=== PATIENT | female | born 1995 | race Caucasian/White ===

== ENCOUNTER 2018-02-17 18:43 | Observation (INO) ==
[2018-02-17 19:23] LABS: Apearance,Urine CLEAR (Clear); Bilirubin,Urine Negative (Negative); Blood, Urine Negative (Negative); Glucose,Urine (UA) Negative (Negative); Ketones,Urine Negative (Negative); Mucus,Urine Occasional /LPF (Occasional); Nitrite,Urine Negative (Negative); Protein,Urine Negative; RBC,Urine <1 /HPF (0-4); Squamous Epithelial Cell,Urine Occasional /HPF (0-10); Urine Color Colorless (Yellow); Urine Specific Gravity 1.001 (1.001-1.035); Urine Urobilinogen < 2.0 EU/DL (0.2-1.0); WBC,Urine <1 /HPF (0-6)
[2018-02-17] MEDS ORDERED: ALUM/MAG/SIMETH/LIDO VISC 1:1 30 ML BOTTLE PO STA (19:35)
[2018-02-17] MEDS ORDERED: ONDANSETRON 4 MG TABLET PO ONE (19:35)
[2018-02-17 19:37] LABS: Basophils # 0.1 10*3/uL (0.0-0.2); Basophils % 0.7 % (0.0-0.8); Eosinophils # 0.5 10*3/uL (0.0-0.87); Hematocrit 34.8 VOL% (35.7-47.0); Hemoglobin 12.2 GM/DL (12.0-16.0); Immature Granulocytes % 0.3 %; Immature Granulocytes Absolute 0.03 #; Lymphocytes # 3.3 10*3/uL (1.4-4.0); Lymphocytes % 36.5 % (21.3-54.2); Mean Corpuscular HGB Conc 35.1 GM/DL (32-36); Mean Corpuscular Hemoglobin 33 PG (27-34); Mean Corpuscular Volume 93.8 FL (87-102); Monocytes # 0.9 10*3/uL (0.11-0.8); Monocytes % 9.7 % (1.7-12.7); Neutrophils # 4.2 10*3/uL (1.4-7.4); Neutrophils % 46.8 % (38.7-73.9); Platelet Count 236 T/CUMM (130-400); Red Blood Count 3.71 MC/CUMM (3.8-5.5); Red Cell Distribution Width 12.1 % (9.3-17.3); White Blood Count 8.9 T/CUMM (4-12)
[2018-02-17] MEDS ORDERED: ONDANSETRON ODT 4 MG TABLET PO ONE (19:37)
[2018-02-17] MEDS ORDERED: ALUM/MAG/SIMETH/LIDO VISC 1:1 30 ML BOTTLE PO ONE (19:37)
[2018-02-17 20:17] LABS: Alanine Aminotransferase 18 U/L (13-56); Albumin 4.1 G/DL (3.4-5.0); Alkaline Phosphatase 41 U/L (45-117); Aspartate Amino Transferase 11 U/L (0-37); Bilirubin,Total < 0.39 MG/DL (0.2-1.0); Blood Urea Nitrogen 7 MG/DL (7-18); Calcium 8.9 MG/DL (8.5-10.1); Glucose 84 MG/DL (74-106); Sodium 139 MMOL/L (136-145); Total Protein 7.4 G/DL (6.4-8.3)
[2018-02-17 20:18] LABS: Osmolality,Calculated 273.5 MOS/KG (273-304); Potassium 3.6 MMOL/L (3.5-5.1)
[2018-02-17] MEDS ORDERED: ONDANSETRON 4 MG/2 ML VIAL IV STA (22:11)
[2018-02-17] MEDS ORDERED: MORPHINE 4 MG/1 ML VIAL IV STA (22:12)
[2018-02-17] MEDS ORDERED: KETOROLAC 30 MG/1 ML VIAL IV STA (22:17)
[2018-02-17] MEDS ORDERED: LIDOCAINE 1% 20 ML VIAL ONE (22:21)
[2018-02-17] MEDS: LACTATED RINGERS 1,000 ML IV SCH (22:30)
[2018-02-17] MEDS ORDERED: TISSUE ADHESIVE 1 EACH APPLICATOR TOP ONE (23:32)
[2018-02-17] MEDS ORDERED: GLYCOPYRROLATE 0.4 MG/2 ML VIAL ONE (23:59)
[2018-02-17] MEDS ORDERED: ONDANSETRON 4 MG/2 ML VIAL ONE ×2 (23:59)
[2018-02-17] MEDS ORDERED: PROPOFOL 200 MG/20 ML VIAL IV ONE (23:59)
[2018-02-17] MEDS ORDERED: HYDROmorphone 2 MG/1 ML VIAL ONE (23:59)
[2018-02-17] MEDS ORDERED: fentaNYL 100 MCG/2 ML VIAL ONE (23:59)
[2018-02-17] MEDS ORDERED: DESFLURANE 1 UNIT/15 MINUTE INH ONE (23:59)
[2018-02-18] MEDS ORDERED: NEOSTIGMINE 10 MG/10 ML VIAL ONE
[2018-02-18] MEDS ORDERED: ROCURONIUM 100 MG/10 ML VIAL IV ONE
[2018-02-18] MEDS ORDERED: SUCCINYLCHOLINE 200 MG/10 ML VIAL ONE
[2018-02-18] MEDS ORDERED: MEPERIDINE 25 MG/1 ML VIAL ONE (00:08)
[2018-02-18] MEDS ORDERED: ONDANSETRON 4 MG/2 ML VIAL IV PRN ×2 (00:10→00:54)
[2018-02-18] MEDS ORDERED: MEPERIDINE 25 MG/1 ML VIAL IV PRN (00:10)
[2018-02-18] MEDS: HYDROmorphone 2 MG/1 ML VIAL IV PRN ×3 (00:10→00:27)
[2018-02-18] MEDS ORDERED: BISACODYL 10 MG SUPP RECTAL PRN (00:54)
[2018-02-18] MEDS ORDERED: DOCUSATE SODIUM 100 MG CAPSULE PO PRN (00:54)
[2018-02-18] MEDS ORDERED: BENZOCAINE/MENTHOL LOZENGE 18/BOX PO PRN (00:54)
[2018-02-18] MEDS ORDERED: IBUPROFEN 800 MG TABLET PO PRN (00:54)
[2018-02-18] MEDS ORDERED: MAGNESIUM HYDROXIDE SUSP 30 ML UDCUP PO PRN (00:54)
[2018-02-18] MEDS: LACTATED RINGERS 1,000 ML IV SCH (04:29)
[2018-02-18 08:09] VITALS: BP 102/59
== END 2018-02-18 09:20 | disposition home or self-care (01) ==
LOC: N.ED 18:43 → N.OB 18:43
PROVIDERS: ADMIT Obstetrics & Gynecology; ATTEND Obstetrics & Gynecology

== ENCOUNTER 2018-02-26 01:17 | Observation (INO) ==
[2018-02-26 05:53] LABS: Basophils # 0.1 10*3/uL (0.0-0.2); Basophils % 0.7 % (0.0-0.8); Eosinophils # 0.4 10*3/uL (0.0-0.87); Eosinophils % 5.3 % (0.00-10.9); Hematocrit 40.4 VOL% (35.7-47.0); Hemoglobin 13.6 GM/DL (12.0-16.0); Immature Granulocytes % 0.3 %; Immature Granulocytes Absolute 0.02 #; Lymphocytes % 41.4 % (21.3-54.2); Mean Corpuscular HGB Conc 33.7 GM/DL (32-36); Mean Corpuscular Hemoglobin 32 PG (27-34); Mean Corpuscular Volume 95.3 FL (87-102); Mean Platelet Volume 9.9 FL (9.6-12.0); Monocytes # 0.6 10*3/uL (0.11-0.8); Monocytes % 8.9 % (1.7-12.7); Neutrophils # 3.1 10*3/uL (1.4-7.4); Neutrophils % 43.4 % (38.7-73.9); Platelet Count 260 T/CUMM (130-400); Red Blood Count 4.24 MC/CUMM (3.8-5.5); Red Cell Distribution Width 11.8 % (9.3-17.3); White Blood Count 7.2 T/CUMM (4-12)
[2018-02-26] MEDS ORDERED: OXYTOCIN/LR 20 UNIT/1,000 ML BAG IV ONE (06:17)
[2018-02-26] MEDS ORDERED: ONDANSETRON 4 MG/2 ML VIAL IV STA (06:17)
[2018-02-26] MEDS ORDERED: MEPERIDINE 50 MG/1 ML VIAL IV STA (06:17)
[2018-02-26 06:22] LABS: Albumin 4.5 G/DL (3.4-5.0); Bilirubin,Total 0.4 MG/DL (0.2-1.0); Calcium 9.4 MG/DL (8.5-10.1); Osmolality,Calculated 276.4 MOS/KG (273-304); Potassium 3.9 MMOL/L (3.5-5.1); Total Protein 8.2 G/DL (6.4-8.3)
[2018-02-26] MEDS ORDERED: KETOROLAC 30 MG/1 ML VIAL ONE (13:31)
[2018-02-26] MEDS ORDERED: SEVOFLURANE 1 UNIT/15 MINUTE INH ONE (13:31)
[2018-02-26] MEDS ORDERED: PROPOFOL 200 MG/20 ML VIAL IV ONE (13:31)
[2018-02-26] MEDS ORDERED: ONDANSETRON 4 MG/2 ML VIAL ONE (13:31)
[2018-02-26] MEDS ORDERED: MEPERIDINE 50 MG/1 ML VIAL IV ONE (14:14)
[2018-02-26] MEDS ORDERED: ONDANSETRON 4 MG/2 ML VIAL IV PRN (14:15)
[2018-02-26 16:32] VITALS: BP 98/58
== END 2018-02-26 17:15 | disposition home or self-care (01) ==
LOC: N.EDINP 01:17 → N.ED 01:17 → N.OB 06:48
PROVIDERS: ADMIT Obstetrics & Gynecology; ATTEND Obstetrics & Gynecology

== ENCOUNTER 2020-05-05 23:48 | Inpatient (IN) ==
[2020-05-05] MEDS ORDERED: MEPERIDINE 50 MG/1 ML VIAL IV PRN (23:59)
[2020-05-05] MEDS ORDERED: ONDANSETRON 4 MG/2 ML VIAL IV PRN (23:59)
[2020-05-05] MEDS ORDERED: BUTORPHANOL 2 MG/ML VIAL IV PRN (23:59)
[2020-05-06 00:34] LABS: Basophils # 0.1 10*3/uL (0.0-0.2); Basophils % 0.3 % (0.0-0.8); Eosinophils # 0.4 10*3/uL (0.0-0.87); Eosinophils % 2.2 % (0.00-10.9); Hematocrit 31.9 VOL% (35.7-47.0); Hemoglobin 10.6 GM/DL (12.0-16.0); Immature Granulocytes % 1.2 %; Immature Granulocytes Absolute 0.19 #; Lymphocytes # 3.1 10*3/uL (1.4-4.0); Lymphocytes % 19.5 % (21.3-54.2); Mean Corpuscular HGB Conc 33.2 GM/DL (32-36); Mean Corpuscular Volume 89.1 FL (87-102); Mean Platelet Volume 10.5 FL (9.6-12.0); Monocytes % 7.5 % (1.7-12.7); Neutrophils % 69.3 % (38.7-73.9); Platelet Count 279 T/CUMM (130-400); Red Blood Count 3.58 MC/CUMM (3.8-5.5); Red Cell Distribution Width 12.9 % (9.3-17.3); White Blood Count 15.9 T/CUMM (4-12)
[2020-05-06 00:55] LABS: Bilirubin,Total 0.5 MG/DL (0.2-1.0); Calcium 9.5 MG/DL (8.5-10.1); Total Protein 7.3 G/DL (6.4-8.3)
[2020-05-06] MEDS ORDERED: AMPICILLIN INJ 2,000 MG in SODIUM CHLORIDE 0.9% 100 ML IV ONE (01:15)
[2020-05-06] MEDS: LACTATED RINGERS 1,000 ML IV SCH ×3 (01:31→18:34)
[2020-05-06] MEDS ORDERED: ePHEDrine 50 MG/ML VIAL IV PRN (04:38)
[2020-05-06] MEDS ORDERED: CITRIC ACID/SODIUM CITRATE 30 ML UDCUP PO PRN (04:39)
[2020-05-06] MEDS ORDERED: FAMOTIDINE 20 MG/2 ML VIAL IV PRN (04:43)
[2020-05-06] MEDS ORDERED: fentaNYL 2 MCG/ROPIV 0.2% EPID 100 ML EPIDURAL SCH (05:00)
[2020-05-06] MEDS: AMPICILLIN INJ 1,000 MG in SODIUM CHLORIDE 0.9% 100 ML IV SCH ×3 (05:27→14:21)
[2020-05-06] MEDS ORDERED: OXYTOCIN/LR 20 UNIT/1,000 ML BAG IV SCH (11:00)
[2020-05-06 12:32] LABS: Bilirubin,Urine Negative (Negative); Blood, Urine Negative (Negative); Glucose,Urine (UA) Negative (Negative); Ketones,Urine Negative (Negative); Nitrite,Urine Negative (Negative); Protein,Urine Negative; RBC,Urine <1 /HPF (0-4); Urine Appearance CLEAR (Clear); Urine Color Yellow (Yellow); Urine Specific Gravity 1.016 (1.001-1.035)
[2020-05-06] MEDS ORDERED: TRANEXAMIC ACID 1,000 MG/10 ML VIAL ONE (12:59)
[2020-05-06] MEDS ORDERED: OXYTOCIN/LR 0 UNIT/0 ML BAG IV ONE (12:59)
[2020-05-06] MEDS ORDERED: miSOPROStoL 200 MCG TABLET ONE (12:59)
[2020-05-06] MEDS ORDERED: METHYLERGONOVINE 0.2 MG/1 ML AMP ONE (13:00)
[2020-05-06] MEDS ORDERED: CARBOPROST TROMETHAMINE 250 MCG/ML AMP IM ONE (13:00)
[2020-05-06 13:22] LABS: Cord Venous Blood HCO3 21.4 MMOL/L; Cord Venous Blood PCO2 51.1 MMHG; Cord Venous Blood PO2 18.6
[2020-05-06] MEDS ORDERED: ACETAMINOPHEN 325 MG TABLET PO PRN ×2 (14:42→16:51)
[2020-05-06] MEDS ORDERED: BISACODYL 10 MG SUPP RECTAL PRN (16:51)
[2020-05-06] MEDS ORDERED: WITCH HAZEL PADS 100/JAR TOP PRN (16:51)
[2020-05-06] MEDS ORDERED: HYDROCORTISONE 2.5% RECTAL CREAM 30 GM TUBE TOP PRN (16:51)
[2020-05-06] MEDS ORDERED: OXYTOCIN/LR 20 UNIT/1,000 ML BAG IV ONE (16:51)
[2020-05-06] MEDS ORDERED: ONDANSETRON 4 MG/2 ML VIAL IV PRN (16:51)
[2020-05-06] MEDS ORDERED: BENZOCAINE 20%/MENTHOL 0.5% SPRAY 56 GM CAN TOP PRN (16:51)
[2020-05-06] MEDS ORDERED: oxyCODONE/ACETAMINOPHEN 5-325 MG TABLET PO PRN (16:51)
[2020-05-06] MEDS ORDERED: LANOLIN 50% CREAM 0.3 OZ TUBE TOP PRN (16:51)
[2020-05-06] MEDS ORDERED: DIPH/TET/ACEL PERT BOOSTER VACCINE 0.5 ML VIAL IM ONE (16:51)
[2020-05-06] MEDS: IBUPROFEN 800 MG TABLET PO PRN (19:30)
[2020-05-06] MEDS: oxyCODONE/ACETAMINOPHEN 5-325 MG TABLET PO PRN (21:05)
[2020-05-06] MEDS: DOCUSATE SODIUM 100 MG CAPSULE PO SCH (21:13)
[2020-05-07] MEDS: IBUPROFEN 800 MG TABLET PO PRN ×2 (04:51→18:28)
[2020-05-07 06:11] LABS: Basophils % 0.3 % (0.0-0.8); Eosinophils # 0.3 10*3/uL (0.0-0.87); Eosinophils % 2.4 % (0.00-10.9); Hematocrit 27.5 VOL% (35.7-47.0); Hemoglobin 9.1 GM/DL (12.0-16.0); Immature Granulocytes % 0.9 %; Immature Granulocytes Absolute 0.11 #; Lymphocytes % 17.2 % (21.3-54.2); Mean Corpuscular HGB Conc 33.1 GM/DL (32-36); Mean Corpuscular Volume 90.5 FL (87-102); Mean Platelet Volume 10.9 FL (9.6-12.0); Monocytes % 11.8 % (1.7-12.7); Neutrophils % 67.4 % (38.7-73.9); Platelet Count 193 T/CUMM (130-400); Red Blood Count 3.04 MC/CUMM (3.8-5.5); Red Cell Distribution Width 12.9 % (9.3-17.3); White Blood Count 11.9 T/CUMM (4-12)
[2020-05-07] MEDS: DOCUSATE SODIUM 100 MG CAPSULE PO SCH ×2 (08:23→21:09)
[2020-05-07] MEDS: oxyCODONE/ACETAMINOPHEN 5-325 MG TABLET PO PRN ×2 (11:13→17:14)
[2020-05-08] MEDS: IBUPROFEN 800 MG TABLET PO PRN ×2 (00:28→10:35)
[2020-05-08 08:43] VITALS: BP 116/65
[2020-05-08] MEDS: DOCUSATE SODIUM 100 MG CAPSULE PO SCH (09:25)
== END 2020-05-08 12:50 | disposition home or self-care (01) | DRG 807 ==
LOC: N.LDOUT 23:48 → N.LD 23:51 → N.OB 05-06 16:43
PROVIDERS: ADMIT Obstetrics & Gynecology; ATTEND Obstetrics & Gynecology

== ENCOUNTER 2021-06-18 11:55 | Observation (INO) ==
[2021-06-18] MEDS ORDERED: ceFAZolin 2,000 MG/50 ML DUPLEX IV ONE (12:54)
[2021-06-18 13:13] LABS: Basophils % 0.2 % (0.0-0.8); Eosinophils # 0.3 10*3/uL (0.0-0.87); Hematocrit 39.5 VOL% (35.7-47.0); Hemoglobin 13.2 GM/DL (12.0-16.0); Immature Granulocytes % 0.2 %; Immature Granulocytes Absolute 0.02 #; Lymphocytes # 2.4 10*3/uL (1.4-4.0); Mean Corpuscular HGB Conc 33.4 GM/DL (32-36); Mean Corpuscular Volume 93.2 FL (87-102); Mean Platelet Volume 9.2 FL (9.6-12.0); Monocytes % 7.3 % (1.7-12.7); Neutrophils % 60.3 % (38.7-73.9); Platelet Count 256 T/CUMM (130-400); Red Blood Count 4.24 MC/CUMM (3.8-5.5); Red Cell Distribution Width 12.2 % (9.3-17.3); White Blood Count 8.4 T/CUMM (4-12)
[2021-06-18] MEDS: MEPERIDINE 50 MG/1 ML VIAL IV PRN ×2 (13:27→19:10)
[2021-06-18] MEDS: ONDANSETRON 4 MG/2 ML VIAL IV PRN ×3 (13:28→19:16)
[2021-06-18 13:32] LABS: Albumin 3.5 G/DL (3.4-5.0); Bilirubin,Total 0.8 MG/DL (0.20-1.00); Osmolality,Calculated 261.5 MOS/KG (273-304); Potassium 3.8 MMOL/L (3.5-5.1); Total Protein 7.5 G/DL (6.4-8.2)
[2021-06-18] MEDS: LACTATED RINGERS 1,000 ML IV SCH ×2 (14:31→19:03)
[2021-06-18] MEDS: PIPERACILLIN/TAZOBACTAM 3,375 MG in SODIUM CHLORIDE 0.9% 100 ML IV SCH ×2 (14:48→23:21)
[2021-06-18] MEDS: POLYETHYLENE GLYCOL POWDER 17 GM PACK PO SCH (21:00)
[2021-06-18] MEDS: ESTROGENS (CONJ) VAG CREAM 30 GM TUBE VAG SCH (21:00)
[2021-06-18] MEDS ORDERED: PROMETHAZINE 25 MG/1 ML VIAL IM PRN (21:03)
[2021-06-18] MEDS: clonazePAM 0.5 MG TABLET PO SCH (22:04)
[2021-06-18] MEDS: ESCITALOPRAM 10 MG TABLET PO SCH (22:04)
[2021-06-19] MEDS: LACTATED RINGERS 1,000 ML IV SCH ×3 (01:14→17:30)
[2021-06-19] MEDS: PIPERACILLIN/TAZOBACTAM 3,375 MG in SODIUM CHLORIDE 0.9% 100 ML IV SCH ×3 (06:32→22:27)
[2021-06-19 08:01] LABS: Red Cell Distribution Width 12.3 % (9.3-17.3)
[2021-06-19 08:05] LABS: Basophils # 0.1 10*3/uL (0.0-0.2); Basophils % 0.6 % (0.0-0.8); Eosinophils # 0.3 10*3/uL (0.0-0.87); Eosinophils % 3.8 % (0.00-10.9); Hematocrit 32.7 VOL% (35.7-47.0); Immature Granulocytes % 0.2 %; Immature Granulocytes Absolute 0.02 #; Lymphocytes # 2.2 10*3/uL (1.4-4.0); Lymphocytes % 25.1 % (21.3-54.2); Mean Corpuscular Volume 94.2 FL (87-102); Mean Platelet Volume 9.4 FL (9.6-12.0); Monocytes % 7.7 % (1.7-12.7); Neutrophils % 62.6 % (38.7-73.9); Platelet Count 223 T/CUMM (130-400); Red Blood Count 3.47 MC/CUMM (3.8-5.5); White Blood Count 8.9 T/CUMM (4-12)
[2021-06-19 08:07] LABS: Hemoglobin 10.8 GM/DL (12.0-16.0)
[2021-06-19 08:21] LABS: Calcium 8.2 MG/DL (8.5-10.1); Osmolality,Calculated 278.3 MOS/KG (273-304); Potassium 3.9 MMOL/L (3.5-5.1)
[2021-06-19] MEDS: POLYETHYLENE GLYCOL POWDER 17 GM PACK PO SCH (09:47)
[2021-06-19] MEDS: ONDANSETRON 4 MG/2 ML VIAL IV PRN ×2 (10:24→18:15)
[2021-06-19] MEDS: ESCITALOPRAM 10 MG TABLET PO SCH (21:46)
[2021-06-19] MEDS: clonazePAM 0.5 MG TABLET PO SCH (21:46)
[2021-06-19] MEDS: ESTROGENS (CONJ) VAG CREAM 30 GM TUBE VAG SCH (21:47)
[2021-06-20] MEDS: ONDANSETRON 4 MG/2 ML VIAL IV PRN (00:45)
[2021-06-20] MEDS: LACTATED RINGERS 1,000 ML IV SCH ×2 (00:46→10:04)
[2021-06-20 06:29] LABS: Basophils % 0.5 % (0.0-0.8); Eosinophils # 0.3 10*3/uL (0.0-0.87); Eosinophils % 4.6 % (0.00-10.9); Immature Granulocytes % 0.3 %; Immature Granulocytes Absolute 0.02 #; Lymphocytes # 2.9 10*3/uL (1.4-4.0); Lymphocytes % 47.8 % (21.3-54.2); Mean Corpuscular HGB Conc 31.6 GM/DL (32-36); Mean Corpuscular Volume 98.2 FL (87-102); Mean Platelet Volume 9.9 FL (9.6-12.0); Monocytes % 7.2 % (1.7-12.7); Neutrophils % 39.6 % (38.7-73.9); Platelet Count 230 T/CUMM (130-400); Red Blood Count 3.87 MC/CUMM (3.8-5.5); Red Cell Distribution Width 12.3 % (9.3-17.3); White Blood Count 6.1 T/CUMM (4-12)
[2021-06-20] MEDS: PIPERACILLIN/TAZOBACTAM 3,375 MG in SODIUM CHLORIDE 0.9% 100 ML IV SCH (06:40)
[2021-06-20] MEDS: POLYETHYLENE GLYCOL POWDER 17 GM PACK PO SCH (08:19)
[2021-06-20] MEDS ORDERED: SIMETHICONE CHEW 80 MG TABLET PO PRN (10:05)
[2021-06-20 12:19] VITALS: BP 108/62
== END 2021-06-20 15:06 | disposition home or self-care (01) ==
LOC: N.OBOUT 11:55 → N.OB 11:55 → N.CT 11:55 → N.OB 12:46
PROVIDERS: ADMIT Obstetrics & Gynecology; ATTEND Obstetrics & Gynecology